=== PATIENT | female | born 1975 | race Caucasian/White ===

== ENCOUNTER 2022-11-02 18:34 | Emergency (ER) | payer BC ==
[~2022-11-02] VITALS: Ht 162.6 cm; Wt 72.6 kg
[2022-11-02 18:53] VITALS: BP 130/83
[2022-11-02] MEDS ORDERED: ACETAMINOPHEN EXTRA STRENGTH 500 MG TAB PO ONE (18:55)
[2022-11-02] MEDS ORDERED: BACITRACIN OINT 500 UNITS/GM PKT TP ONE (18:55)
[2022-11-02] MEDS ORDERED: ONDANSETRON 4 MG ODT PO ONE (20:25)
[2022-11-02] MEDS ORDERED: ONDA-188 PO (20:41)
[2022-11-02] MEDS ORDERED: BACI-416 TP (20:41)
[2022-11-02] MEDS ORDERED: ACET-10509 PO (20:41)
[2022-11-02] MEDS ORDERED: IBUP-2213 PO (20:41)
[2022-11-02 21:21] VITALS: BP 130/83
--- NOTE | 2022-11-02 21:21 | NUR ---
Patient discharged with v/s stable. Written and verbal after care instructions given and explained. Patient alert, oriented and verbalized understanding of instructions. Ambulatory with steady gait. All questions addressed prior to discharge. ID band removed. Patient advised to follow up with PMD. Rx of IBUPROFEN, TYLENOL, BACITRACIN, ZOFRAN given. Patient educated on indication of medication including possible reaction and side effects. Opportunity to ask questions provided and answered.
== END 2022-11-02 21:21 | disposition home or self-care (01) ==
LOC: MED 18:34
DX: S01.511A Laceration without foreign body of lip, initial encounter (principal); I10 Essential (primary) hypertension; W18.30XA Fall on same level, unspecified, initial encounter; Y93.89 Activity, other specified; Y92.89 Other specified places as the place of occurrence of the external cause; Y99.8 Other external cause status
CPT/HCPCS: 70450; 70486; 90715; 99284; Q0162